=== PATIENT | male | born 1995 | race Caucasian/White ===

== ENCOUNTER 2018-12-08 17:23 | Emergency (ER) | payer MEDICAID ==
[2018-12-08] MEDS: LIDOCAINE/MYLANTA 40 ML BTL PO (19:03)
[2018-12-08] MEDS: ONDANSETRON (ODT) 4 MG TAB ODT (19:03)
== END 2018-12-08 19:34 | disposition home or self-care (01) ==
LOC: FTE 17:23
DX: A08.4 Viral intestinal infection, unspecified (principal)
CPT/HCPCS: 99283; Z7502